=== PATIENT | female | born 1980 | race Caucasian/White ===

== ENCOUNTER 2022-06-25 15:34 | Emergency (ER) | payer SELFPAY ==
[~2022-06-25] VITALS: Ht 152.4 cm; Wt 55.0 kg
[2022-06-25 15:44] VITALS: BP 124/54
== END 2022-06-25 21:29 | disposition left against medical advice (07) ==
LOC: ER 15:34
DX: O26.891 Other specified pregnancy related conditions, first trimester (principal); Z3A.01 Less than 8 weeks gestation of pregnancy
CPT/HCPCS: 99281